=== PATIENT | male | born 1970 ===

== ENCOUNTER 2019-08-02 18:15 | Inpatient (IN) | payer OTHER ==
[2019-08-03 01:40] VITALS: BMI 28.8
[2019-08-03] MEDS ORDERED: Ondansetron ODT 4 MG TAB PO PRN (01:46)
[2019-08-03 02:21] LABS: Hemoglobin 14.7 g/dL (14.0-18.0); Mean Corpuscular HGB CONC 36.2 g/dL (32.0-36.0); Mean Corpuscular Hemoglobin 33.1 pg (27.0-31.0); Mean Corpuscular Volume 91.5 fL (78.0-98.0); Mean Platelet Volume 5.7 fL (7.4-10.4); Platelet Count 411 thou/uL (130-400); RBC Distribution Width 11.1 % (11.5-14.5); Red Blood Cell (RBC) Count 4.44 mill/uL (4.70-6.10); White Blood Cell (WBC) Count 13.5 thou/uL (4.8-10.8)
--- NOTE | 2019-08-03 02:35 | PDOC.EVN ---
Event Note - Event Note Event Note: [id number]
[2019-08-03 02:39] LABS: Lymphocytes 8 % (21-51); MDiff Complete? YES; Monocytes 6 % (0-10); Neutrophil 86 % (42-75); Platelet Morphology Comment Appears Increased; RBC Morphology Normal
[2019-08-03] MEDS: Cefepime 2 GM in Sodium Chloride 0.9% 100 ML IVPB SCH ×2 (02:56→14:28)
--- NOTE | 2019-08-03 03:05 | HP ---
CHIEF COMPLAINT: Cough, fever, and chest pain. HISTORY OF PRESENT ILLNESS: Mr. Pappas is a 49-year-old male with past medical history of bronchial asthma, has been having right-sided chest pain, cough and fever for the last 2 weeks. The patient currently is an inmate. The patient was treated with azithromycin and Bactrim. The symptoms persist. Repeat imaging studies and CTA of the chest were done, which showed a large loculated pleural effusion with complete collapse of the right lower lobe. Requested to transfer the patient to our hospital for further management. PAST MEDICAL HISTORY: 1. Bronchial asthma. 2. GERD. 3. Hepatitis C. 4. Varicella. PAST SURGICAL HISTORY: None. ALLERGIES: ALLERGIC TO PENICILLIN AND TYLENOL. FAMILY HISTORY: Reviewed and noncontributory. SOCIAL HISTORY: The patient currently is an inmate, former smoker. Denies alcohol drinking. REVIEW OF SYSTEMS: Review of 14 systems negative except what is mentioned in history of present illness. PHYSICAL EXAMINATION: GENERAL: The patient is awake, alert, does not appear to be in acute distress. VITAL SIGNS: Blood pressure 123/83, pulse is 97, temperature 99.3, respiratory rate is 24. HEAD AND NECK: Normocephalic, atraumatic. NECK: Supple. No JVD. CHEST: There is decreased air entry in right lung with dullness to percussion in right chest posteriorly. HEART: S1, S2. Regular. ABDOMEN: Soft, nontender. Bowel sounds present. NEUROLOGIC: Awake, alert, and oriented x3. PSYCHIATRIC: Normal mood. EXTREMITIES: No clubbing. No cyanosis. LABORATORY DATA: Latest labs from the outside facility, WBC count 16.8, hemoglobin 14.5, platelet count 72. Sodium is 140, potassium 4.5, BUN is 13, creatinine 1.1, glucose 110. CTA of the chest, as mentioned above in history of present illness. ASSESSMENT: 1. Pneumonia with parapneumonic effusion. 2. Parapneumonic effusion, loculated. 3. Chest pain secondary to above. 4. Leukocytosis. 5. Asthma. PLAN: 1. Admit. 2. Septic workup including blood cultures. 3. IV antibiotics. 4. Consult Pulmonary in a.m. for evaluation and further recommendations. 5. Reconcile home medications. 6. Deep venous thrombosis prophylaxis as appropriate. 7. Expected length of stay 2 midnights or more. Job ID: [id number]
--- NOTE | 2019-08-03 08:17 | RAD ---
Exam: Chest 2 views: HISTORY: Pleural effusion FINDINGS: There is abnormal pleural opacity changes within the right lower chest and right mid chest with somew hat nodular change suggesting a possibility of some associated loculation. Heart size is normal. The left lung is clear. No prior imaging available. IMPRESSION: Moderately large possibly loculated right pleural effusion. There may well be some underlying pulmona ry parenchymal changes. Heart size is normal. Left lung is clear. Continued short-term follow-up. Consider follow-up chest CT.
[2019-08-03] MEDS ORDERED: Vancomycin HCl 1.25 GM in Sodium Chloride 0.9% 250 ML 250 ML IVPB SCH (09:00)
[2019-08-03] MEDS: Famotidine 20 MG TAB PO SCH ×2 (09:16→20:26)
[2019-08-03 11:32] LABS: Fluid, pH - Pleural Fld Less than 7.00 (7.60 - 7.66)
--- NOTE | 2019-08-03 12:06 | CON ---
DATE OF CONSULTATION: HISTORY OF PRESENT ILLNESS: Kofi Pappas is a 49-year-old gentleman from the custodial system [place], [place], who states for the last 2 weeks he is having right-sided chest pain and shortness of breath, fever, chills, and yellow sputum production. He had an x-ray taken, which showed a right pleural effusion. CAT scan showed a loculated pleural effusion. He is transferred here for ongoing care. We have been consulted. I reviewed his chest x-ray from yesterday. It clearly shows a large right pleural effusion. He is in custodial system over several years. He has longstanding history of tobacco abuse, substance abuse, and alcohol abuse. PAST MEDICAL HISTORY: Asthma, reflux, hemorrhoids, hepatitis C, arthritis, and zoster. He apparently was given Bactrim and azithromycin for 8 days in the custodial system without much relief. ALLERGIES: HE HAS ALLERGIES TO PENICILLIN. MEDICATIONS: His medicine from the custodial system includes; 1. Albuterol. 2. Flovent. 3. Lasix. REVIEW OF SYSTEMS: Otherwise, negative. PHYSICAL EXAMINATION: VITAL SIGNS: On examination, his temperature is 98, pulse 87, respiratory rate 18, saturations are 98% on room air, and blood pressure 117/76. CHEST: Decreased breath sounds, right low two-thirds; left, unremarkable. Minimal wheezing. CARDIAC: Normal S1 and S2. No gallops. ABDOMEN: No masses. LABORATORY DATA: White count is 13,000, H and H are 14 and40, and platelet count is normal. His lab from the custodial system showed his glucose was 110, his BUN and creatinine were normal. ASSESSMENT: Right pleural effusion, parapneumonic, asthma, hepatitis C, hemorrhoids. PLAN: A thoracentesis will be performed. He will be sent for culture. Cardiovascular Surgery will be consulted for decortication. Primary/Critical Care will follow. This is a consultation note, 70 minutes, 50% direct patient care exclusive of the thoracentesis. Job ID: [id number]
[2019-08-03 12:29] LABS: Fluid, Triglycerides 21 mg/dL (Not Available); Pleural Fluid, Amylase Less than 30 U/L (Not Available); Pleural Fluid, Glucose Less than 20 mg/dL; Pleural Fluid, LDH 1363 U/L (Not Available); Pleural Fluid, Protein 4.9 g/dL
[2019-08-03 12:42] LABS: RBC Count-Automated (BF) 2220 /cumm; WBC/Nucleated-Auto (BF) 2975 uL
--- NOTE | 2019-08-03 12:58 | OP ---
DATE OF PROCEDURE: 08/03/2019 PROCEDURE PERFORMED: Thoracentesis. INDICATION: Loculated pleural effusion. DESCRIPTION OF PROCEDURE: After informed consent, the right posterior thorax was cleaned with chlorhexidine. 1% lidocaine was infiltrated into the right 9th intercostal space in the midscapular area. Pleural cavity was entered in, which was felt to be somewhat thick pleura and 20 mL of somewhat greenish turbid fluid was removed, pH is 6.8, suggesting it is parapneumonic and loculated. An 8-Syriac catheter was inserted with some difficulty where we were able to get barely 100 mL. Pleural effusion was sent for pleural studies including cytology and culture. The patient tolerated the procedure well. They are going to consult Cardiovascular Surgery for decortication. Job ID: [id number]
[2019-08-03 13:06] LABS: BF Color Yellow; Body Fluid Source Pleural Fluid; Clarity Hazy (Clear); Tube # EDTA
[2019-08-03 13:12] LABS: BF Segmented Neutrophils 54 %; Cell Count Non Hematic 21 %; Eosinophils 2 %; Lymphocytes 23 %
[2019-08-03] MEDS: traMADol HCl 50 MG TAB PO PRN (14:27)
--- NOTE | 2019-08-03 14:30 | CON ---
DATE OF CONSULTATION: 08/03/2019 HISTORY OF PRESENT ILLNESS: Mr. Pappas is a 49-year-old gentleman, who has had fever or chills, overall feeling of malaise over the last week or so. He had a chest x-ray performed, which shows a right-sided pleural effusion. This was tapped by Dr. Correa with turbid low pH fluid. I have been asked to see him for decortication. He is currently resting comfortably without other complaints. PAST MEDICAL HISTORY: Hepatitis C. PAST SURGICAL HISTORY: None. CURRENT MEDICATIONS: None. ALLERGIES: PENICILLIN AND TYLENOL. REVIEW OF SYSTEMS: Ten-point review of systems is performed, is negative except as above. PHYSICAL EXAMINATION: GENERAL: This is a well-developed, well-nourished man, resting comfortably. VITAL SIGNS: Temperature is 98, pulse is 80 and regular, and blood pressure is 133/79. NECK: Supple. There are no carotid bruits. CHEST: Has diminished breath sounds to both bases. HEART: Rhythm is regular. ABDOMEN: Soft and nontender. LABORATORY DATA: Of note, his white blood cell count is 13.5, hemoglobin is 14.7. ASSESSMENT AND PLAN: This is a pleasant 49-year-old prisoner, who has a right empyema. I have discussed right thoracoscopy and decortication with him as he is agreeable to proceed tomorrow. Job ID: [id number]
[2019-08-03] MEDS: Vancomycin 1.5 GRAM/300 ML BAG 1.5 GM in Premix Bag 1 BAG IVPB SCH (16:35)
[2019-08-04] MEDS: Cefepime 2 GM in Sodium Chloride 0.9% 100 ML IVPB SCH ×2 (03:09→15:05)
[2019-08-04] MEDS: Vancomycin 1.5 GRAM/300 ML BAG 1.5 GM in Premix Bag 1 BAG IVPB SCH ×2 (04:15→16:55)
[2019-08-04] MEDS ORDERED: Fentanyl 250 MCG/5 ML VIAL ONE (07:43)
[2019-08-04] MEDS: Famotidine 20 MG TAB PO SCH ×2 (07:55→21:26)
[2019-08-04] MEDS ORDERED: Midazolam HCl 2 mg/2 ml Vial ONE (08:03)
[2019-08-04] MEDS ORDERED: Bupivacaine PF 0.5% 30 ML VIAL ONE (08:49)
[2019-08-04] MEDS ORDERED: Fentanyl 100 MCG/2 ML VIAL ONE (10:09)
[2019-08-04] MEDS ORDERED: Promethazine HCl 25 MG/ML VIAL IM PRN ×2 (10:10→10:18)
[2019-08-04] MEDS ORDERED: Ondansetron HCl/PF 4 MG/2 ML Vial IVP PRN (10:10)
[2019-08-04] MEDS ORDERED: Promethazine HCl 25 MG/ML VIAL SLOW IVP PRN (10:10)
[2019-08-04] MEDS ORDERED: Ondansetron PF 4 MG/2 ML Vial IVP PRN (10:18)
[2019-08-04] MEDS ORDERED: Fentanyl 100 MCG/2 ML VIAL SLOW IVP PRN ×2 (10:18)
--- NOTE | 2019-08-04 10:37 | RAD ---
Exam: Chest one view: HISTORY: Pleural effusion COMPARISON: 08/03/2019 FINDINGS: 2 right chest tubes in place minimal linear parenchymal changes in the right mid and lower lung zone possibly some mild partial residual atelectasis. There is been marked reduction in the right pleural fluid. The left chest is stable. IMPRESSION: 2 right chest tubes placed with marked reduction in previously noted right pleural effusion with some minimal persistent parenchymal changes.
[2019-08-04] MEDS ORDERED: Vecuronium 10 MG VIAL ONE (10:39)
[2019-08-04] MEDS ORDERED: Lidocaine 1% PF 5 ML VIAL ONE (10:39)
[2019-08-04] MEDS ORDERED: Ondansetron PF 4 MG/2 ML Vial ONE (10:39)
[2019-08-04] MEDS ORDERED: Glycopyrrolate 0.2 MG/ML 5 ML SYRINGE ONE (10:39)
[2019-08-04] MEDS ORDERED: PROPOFOL 200 MG/20 ML VIAL ONE (10:39)
--- NOTE | 2019-08-04 12:20 | PRG ---
DATE OF SERVICE: 08/04/2019 SUBJECTIVE: Kofi Pappas is status post decortication. X-ray looks much improved. No acute infiltrates are seen. OBJECTIVE: VITAL SIGNS: Temperature 98, pulse 95, respiratory rate 24, 2 L, blood pressure . No difficulty breathing. CHEST: No wheezing or crackles. CARDIAC: Normal S1, S2. No gallops. ABDOMEN: No masses. ASSESSMENT: Status post right pleural effusion loculated, decortication, hepatitis C, asthma. PLAN: Pulmonary franco, he is much improved at this stage. Continue antibiotics. We will probably deescalate tomorrow. PT, supportive care. We will follow. Job ID: [id number]
[2019-08-04] MEDS: traMADol HCl 50 MG TAB PO PRN ×3 (13:04→21:25)
--- NOTE | 2019-08-04 13:37 | PDOC.HOSPP ---
- Subjective Encounter Date: 08/04/19 Encounter Time: 13:05 Subjective: 49 y/o male, penitentiary inmate with asthma,GERD and hep C infection admitted with worsening R chest pain associated with cough and fever despite antibiotic therapy with azithromycin and bactrim for pneumonia. Ct showed loculated right effusion s/p thoracenetesis with fluid analysis consistent with empyema. Patient had decortication with chest tube placement earlier today. complaining of right chest pain. - Objective Vital Signs & Weight: Vital Signs (12 hours) Temp Pulse Resp BP Pulse Ox 08/04/19 11:30 98.2 F 95 24 H 124/82 95 08/04/19 07:10 92 L 08/04/19 07:05 98.7 F 85 16 118/78 92 L 08/04/19 04:27 98.5 F 84 12 123/81 91 L Weight Admit Weight 209 lb 3.52 oz Weight 209 lb 3.52 oz I&O: 08/03/19 08/04/19 08/05/19 06:59 06:59 06:59 Intake Total 1380 Output Total 800 Balance 580 Result Diagrams: 08/03/19 02:10 Hospitalist ROS - Medication Medications: Active Medications Generic Name Dose Route Start Last Admin Trade Name Freq PRN Reason Stop Dose Admin Famotidine 20 mg 08/03/19 09:00 08/04/19 07:55 Pepcid PO Not Given BID MIKI Cefepime HCl 2 gm/ Sodium 100 mls @ 200 mls/hr 08/03/19 03:00 08/04/19 03:09 Chloride IVPB 100 mls 0300,1500 MIKI Administration Vancomycin HCl 1.5 gm/ Device 300 mls @ 200 mls/hr 08/03/19 17:00 08/04/19 04 :15 IVPB 300 mls 0500,1700 MIKI Administration Ondansetron HCl 4 mg 08/03/19 01:46 08/03/19 20:27 Zofran Odt PO 4 mg Q6H PRN Administration Nausea/Vomiting Tramadol HCl 100 mg 08/03/19 14:13 08/04/19 13:04 Ultram PO 100 mg Q4H PRN Administration Pain - Exam General Appearance: awake alert Eye: anicteric sclera ENT: normocephalic atraumatic Neck: supple, symmetric Heart: RRR Respiratory - other findings: decreased air movement right hemithorax. Chest tube noted Gastrointestinal: soft, non-tender, non-distended, normal bowel sounds Extremities: no cyanosis, no edema Neurological: cranial nerve grossly intact, no focal deficits Psychiatric: A&O x 3 Hosp A/P (1) Pneumonia involving right lung Code(s): J18.9 - PNEUMONIA, UNSPECIFIED ORGANISM Status: Acute (2) Empyema of right pleural space Code(s): J86.9 - PYOTHORAX WITHOUT FISTULA Status: Acute (3) Sepsis Code(s): A41.9 - SEPSIS, UNSPECIFIED ORGANISM Status: Acute (4) GERD (gastroesophageal reflux disease) Code(s): K21.9 - GASTRO-ESOPHAGEAL REFLUX DISEASE WITHOUT ESOPHAGITIS Status: Acute (5) Bronchial asthma Code(s): J45.909 - UNSPECIFIED ASTHMA, UNCOMPLICATED Status: Acute (6) Pleuritic chest pain Code(s): R07.81 - PLEURODYNIA Status: Acute (7) Hepatitis C Code(s): B19.20 - UNSPECIFIED VIRAL HEPATITIS C WITHOUT HEPATIC COMA Status: Acute - Plan Continue antibiotics. Analgesic as needed Follow CBC and CMP. Chest tube management as per CTS and pulmonology Await cultures
[2019-08-04 13:51] LABS: ALT (SGPT) 72 U/L (8-55); AST (SGOT) 63 U/L (5-34); Albumin 3.3 g/dL (3.5-5.0); Alkaline Phosphatase 79 U/L (40-110); Anion Gap 15 mmol/L (10-20); BUN (Urea Nitrogen) 12 mg/dL (8.9-20.6); Bilirubin, Total 0.6 mg/dL (0.2-1.2); Calc. Creatinine Clearance 176 mL/min (70-130); Carbon Dioxide 22 mmol/L (22-29); Chloride 102 mmol/L (98-107); Estimated GFR-MDRD Greater than 90; Globulin 3.9 g/dL (2.4-3.5); Glucose 104 mg/dL (70-105); Potassium 3.8 mmol/L (3.5-5.1); Protein, Total 7.2 g/dL (6.0-8.3); Sodium 135 mmol/L (136-145)
[2019-08-04 16:29] LABS: Vancomycin, Trough 5.2 ug/mL
[2019-08-04] MEDS ORDERED: Vancomycin 1.5 GRAM/300 ML BAG 1.5 GM in Premix Bag 1 BAG IVPB SCH (17:00)
[2019-08-04] MEDS: Ibuprofen 200 MG TAB PO PRN (21:52)
[2019-08-05] MEDS: Vancomycin 1.5 GRAM/300 ML BAG 1.5 GM in Premix Bag 1 BAG IVPB SCH ×2 (01:18→10:29)
[2019-08-05] MEDS: Cefepime 2 GM in Sodium Chloride 0.9% 100 ML IVPB SCH ×3 (03:42→21:35)
[2019-08-05] MEDS: traMADol HCl 50 MG TAB PO PRN ×3 (03:54→21:37)
[2019-08-05 06:03] LABS: #Basophils 0.1 thou/uL (0.0-0.2); #Eosinphils 0.2 thou/uL (0.0-0.7); #Lymphocytes 1.2 thou/uL (1.20-3.40); #Monocytes 1.7 thou/uL (0.11-0.59); #Neutrophils 10.5 thou/uL (1.40-6.50); %Basophils 0.6 % (0.0-1.0); %Eosinophils 1.6 % (0.0-10.0); %Monocytes 12.2 % (0.0-10.0); %Neutrophils 76.6 % (42.0-75.0); Hemoglobin 14.6 g/dL (14.0-18.0); Mean Corpuscular HGB CONC 32.3 g/dL (32.0-36.0); Mean Corpuscular Hemoglobin 29.9 pg (27.0-31.0); Mean Corpuscular Volume 92.3 fL (78.0-98.0); Mean Platelet Volume 5.7 fL (7.4-10.4); Platelet Count 380 thou/uL (130-400); RBC Distribution Width 11.2 % (11.5-14.5); Red Blood Cell (RBC) Count 4.89 mill/uL (4.70-6.10); White Blood Cell (WBC) Count 13.7 thou/uL (4.8-10.8)
[2019-08-05 06:25] LABS: Anion Gap 12 mmol/L (10-20); BUN (Urea Nitrogen) 12 mg/dL (8.9-20.6); Calc. Creatinine Clearance 173 mL/min (70-130); Calcium 8.4 mg/dL (7.8-10.44); Carbon Dioxide 20 mmol/L (22-29); Chloride 101 mmol/L (98-107); Estimated GFR-MDRD Greater than 90; Glucose 107 mg/dL (70-105); Potassium 4.1 mmol/L (3.5-5.1); Sodium 129 mmol/L (136-145)
[2019-08-05] MEDS: Famotidine 20 MG TAB PO SCH ×2 (10:15→20:38)
[2019-08-05] MEDS: Ibuprofen 200 MG TAB PO PRN ×2 (10:26→18:00)
--- NOTE | 2019-08-05 10:32 | RAD ---
CHEST ONE VIEW: HISTORY: Status post thoracotomy. FINDINGS: Right chest tubes in place. There is some pleural fluid/pleural thickening. Increased opacity changes in the right mid and lower lung zone, probably related to some atelectasis. Less inspiration with so me left lower lobe partial atelectasis. IMPRESSION: Overall less inspiratory effort with some minimal increased pleural density on the right and abnormal increased opacity changes in the right lung and left lower lobe, probably representing atelectasis. Continued short-term followup. POS: [facility]
[2019-08-05] MEDS: Doxycycline 100 MG CAP PO SCH (20:38)
--- NOTE | 2019-08-05 22:31 | PDOC.HOSPP ---
- Subjective Encounter Date: 08/05/19 Encounter Time: 11:00 Subjective: Patient seen and examined for Empyema. Pain controlled. No fever. No new complaints. No overnight events - Objective Vital Signs & Weight: Vital Signs (12 hours) Temp Pulse Resp BP Pulse Ox 08/05/19 19:10 97.9 F 92 16 112/78 92 L 08/05/19 15:00 97.9 F 87 16 116/80 92 L 08/05/19 12:00 97.9 F 87 16 116/80 92 L 08/05/19 11:06 97.8 F 90 16 114/78 92 L Weight Admit Weight 209 lb 3.52 oz Weight 209 lb 3.52 oz I&O: 08/04/19 08/05/19 08/06/19 06:59 06:59 06:59 Intake Total 6626 714 3146 Output Total 618 506 3938 Balance 580 40 115 Result Diagrams: 08/06/19 05:10 08/06/19 05:10 Additional Labs: Microbiology 08/03/19 11:35 Pleural fluid Direct Acid Fast Bacilli Smear - Final 08/03/19 11:35 Pleural fluid Body Fluid Culture - Preliminary 08/03/19 11:35 Pleural fluid Acid Fast Bacilli Culture - Preliminary Specimen has been received and culture in progress. No Growth to date. 08/03/19 02:10 Venous blood - Right Arm Blood Culture - Preliminary NO GROWTH AT 48 HOURS 08/03/19 02:10 Venous blood - Left Hand Blood Culture - Preliminary NO GROWTH AT 48 HOURS Radiology Reviewed by me: Yes (CXR - reviewed) Hospitalist ROS - Review of Systems Cardiovascular: denies: chest pain, palpitations, orthopnea, paroxysmal noc. dyspnea, edema, light headedness, other Gastrointestinal: denies: nausea, vomiting, abdominal pain, diarrhea, constipation, melena, hematochezia, other - Medication Medications: Active Medications Generic Name Dose Route Start Last Admin Trade Name Freq PRN Reason Stop Dose Admin Doxycycline Hyclate 100 mg 08/05/19 21:00 08/05/19 20:38 Vibramycin PO 08/15/19 21:01 100 mg BID MIKI Administration Famotidine 20 mg 08/03/19 09:00 08/05/19 20:38 Pepcid PO 20 mg BID MIKI Administration Cefepime HCl 2 gm/ Sodium 100 mls @ 200 mls/hr 08/05/19 21:00 08/05/19 21:35 Chloride IVPB 100 mls 0900,2100 MIKI Administration Ibuprofen 400 mg 08/04/19 21:45 08/05/19 18:00 Motrin PO 400 mg Q6H PRN Administration Fever/Mild Pain Ondansetron HCl 4 mg 08/03/19 01:46 08/03/19 20:27 Zofran Odt PO 4 mg Q6H PRN Administration Nausea/Vomiting Tramadol HCl 100 mg 08/03/19 14:13 08/05/19 21:37 Ultram PO 100 mg Q4H PRN Administration Pain - Exam General Appearance: NAD Heart: RRR, no gallops Respiratory: rales, rhonchi Gastrointestinal: soft, normal bowel sounds Extremities: no edema Hosp A/P - Plan DVT proph w/SCDs Sepsis due to CA Pneumonia with Parapneumonic effusion/Empyema s/p decortication 08/04 (POA) Hyponatremia Chronic Hep C GERD Mild int Asthma PLAN: Cont IV Cefepime Cont PO Doxy Pain controlled AM labs Cont other meds as above
[2019-08-06] MEDS: traMADol HCl 50 MG TAB PO PRN ×3 (03:22→17:54)
[2019-08-06 05:17] LABS: #Basophils 0.1 thou/uL (0.0-0.2); #Eosinphils 0.6 thou/uL (0.0-0.7); #Lymphocytes 1.1 thou/uL (1.20-3.40); #Monocytes 1.1 thou/uL (0.11-0.59); #Neutrophils 8.4 thou/uL (1.40-6.50); %Basophils 0.5 % (0.0-1.0); %Eosinophils 5.4 % (0.0-10.0); %Lymphocytes 9.9 % (21.0-51.0); %Monocytes 9.6 % (0.0-10.0); %Neutrophils 74.6 % (42.0-75.0); Hemoglobin 13.3 g/dL (14.0-18.0); Mean Corpuscular HGB CONC 33.5 g/dL (32.0-36.0); Mean Corpuscular Hemoglobin 30.8 pg (27.0-31.0); Mean Corpuscular Volume 91.9 fL (78.0-98.0); Mean Platelet Volume 5.4 fL (7.4-10.4); Platelet Count 360 thou/uL (130-400); Red Blood Cell (RBC) Count 4.32 mill/uL (4.70-6.10); White Blood Cell (WBC) Count 11.3 thou/uL (4.8-10.8)
[2019-08-06 05:40] LABS: ALT (SGPT) 46 U/L (8-55); AST (SGOT) 37 U/L (5-34); Albumin 2.8 g/dL (3.5-5.0); Alkaline Phosphatase 75 U/L (40-110); Anion Gap 10 mmol/L (10-20); BUN (Urea Nitrogen) 12 mg/dL (8.9-20.6); Bilirubin, Total 0.4 mg/dL (0.2-1.2); Calc. Creatinine Clearance 181 mL/min (70-130); Calcium 8.4 mg/dL (7.8-10.44); Carbon Dioxide 27 mmol/L (22-29); Chloride 98 mmol/L (98-107); Estimated GFR-MDRD Greater than 90; Globulin 3.5 g/dL (2.4-3.5); Glucose 112 mg/dL (70-105); Magnesium 1.8 mg/dL (1.6-2.6); Protein, Total 6.3 g/dL (6.0-8.3); Sodium 131 mmol/L (136-145)
[2019-08-06] MEDS: Ibuprofen 200 MG TAB PO PRN ×3 (07:38→20:38)
--- NOTE | 2019-08-06 08:08 | RAD ---
Exam: Chest one view HISTORY:Status post thoracotomy Comparison: 08/05/2019 FINDINGS: Cardiac silhouette:Stable cardiomegaly Aorta: Unremarkable Pulmonary vessels: Normal Costophrenic angles: Small right-sided pleural effusion Lines and tubes: Stable 2 right-sided chest tubes. LUNGS: Stable bibasilar opacities. Pneumothorax: None Osseous abnormalities: None IMPRESSION: No significant old change.
[2019-08-06] MEDS: Doxycycline 100 MG CAP PO SCH ×2 (08:39→20:27)
[2019-08-06] MEDS: Famotidine 20 MG TAB PO SCH ×2 (08:39→20:27)
[2019-08-06] MEDS: Cefepime 2 GM in Sodium Chloride 0.9% 100 ML IVPB SCH ×2 (08:39→20:28)
[2019-08-06] MEDS: Saccharomyces boulardii 250 MG CAP PO SCH (08:39)
--- NOTE | 2019-08-06 09:39 | PRG ---
DATE OF SERVICE: 08/06/2019 SUBJECTIVE: Status post decortication, he is doing well. Less pain, less shortness of breath. X-ray still shows some right-sided infiltrates, but no fever or chills. Chest tube in place. OBJECTIVE: VITAL SIGNS: Maximum temperature is 97. CHEST: Decreased breath sounds. No wheezing. CARDIAC: Normal S1 and S2. No gallops. ABDOMEN: No masses. ASSESSMENT: Empyema, decortication, all cultures negative. PLAN: Continue antibiotics. Continue supportive care, PT. We will follow. Job ID: [id number]
[2019-08-06] MEDS ORDERED: Polyethylene Glycol 3350 17 GM Packet PO PRN (15:36)
--- NOTE | 2019-08-06 19:52 | PDOC.HOSPP ---
- Subjective Encounter Date: 08/06/19 Encounter Time: 11:30 Subjective: Patient seen and examined for Empyema. No new CP/SOB. Mild dry cough. No new complaints. No overnight events - Objective Vital Signs & Weight: Vital Signs (12 hours) Temp Pulse Resp BP Pulse Ox 08/06/19 19:36 97.7 F 80 16 113/75 93 L 08/06/19 15:24 98.5 F 86 16 116/75 90 L 08/06/19 11:13 98.0 F 94 18 122/80 92 L 08/06/19 08:39 93 L Weight Admit Weight 209 lb 3.52 oz Weight 209 lb 3.52 oz I&O: 08/05/19 08/06/19 08/07/19 06:59 06:59 06:59 Intake Total 880 3780 2700 Output Total 840 3745 3335 Balance 40 35 -635 Result Diagrams: 08/06/19 05:10 08/06/19 05:10 Additional Labs: Microbiology 08/03/19 11:35 Pleural fluid Direct Acid Fast Bacilli Smear - Final 08/03/19 11:35 Pleural fluid Body Fluid Culture - Preliminary Gram Negative Hesham 08/03/19 11:35 Pleural fluid Acid Fast Bacilli Culture - Preliminary Specimen has been received and culture in progress. No Growth to date. 08/03/19 02:10 Venous blood - Right Arm Blood Culture - Preliminary NO GROWTH AT 48 HOURS 08/03/19 02:10 Venous blood - Left Hand Blood Culture - Preliminary NO GROWTH AT 48 HOURS Radiology Reviewed by me: Yes (CXR - no new changes) Hospitalist ROS - Review of Systems Cardiovascular: denies: chest pain, palpitations, orthopnea, paroxysmal noc. dyspnea, edema, light headedness, other Gastrointestinal: reports: constipation. denies: nausea, vomiting, abdominal pain, diarrhea, melena, hematochezia, other - Medication Medications: Active Medications Generic Name Dose Route Start Last Admin Trade Name Freq PRN Reason Stop Dose Admin Doxycycline Hyclate 100 mg 08/05/19 21:00 08/06/19 08:39 Vibramycin PO 08/15/19 21:01 100 mg BID MIKI Administration Famotidine 20 mg 08/03/19 09:00 08/06/19 08:39 Pepcid PO 20 mg BID MIKI Administration Cefepime HCl 2 gm/ Sodium 100 mls @ 200 mls/hr 08/05/19 21:00 08/06/19 08:39 Chloride IVPB 100 mls 0900,2100 MIKI Administration Ibuprofen 400 mg 08/06/19 15:15 08/06/19 15:59 Motrin PO 400 mg Q4H PRN Administration Fever/Mild Pain (1-3) Ondansetron HCl 4 mg 08/03/19 01:46 08/03/19 20:27 Zofran Odt PO 4 mg Q6H PRN Administration Nausea/Vomiting Saccharomyces Boulardii 250 mg 08/06/19 09:00 08/06/19 08:39 Florastor PO 250 mg DAILY MIKI Administration Tramadol HCl 100 mg 08/06/19 15:26 08/06/19 17:54 Ultram PO 100 mg Q6H PRN Administration Pain - Exam General Appearance: NAD Heart: RRR, no gallops Respiratory: rales, rhonchi Gastrointestinal: soft, non-tender, normal bowel sounds Extremities: no edema Hosp A/P - Plan DVT proph w/SCDs Sepsis due to CA Pneumonia with Parapneumonic effusion/Empyema s/p decortication 08/04 (POA) Hyponatremia Chronic Hep C GERD Mild int Asthma PLAN: Cont IV Cefepime/PO Doxycycline Cont other meds as above Pain control with PRN meds Treat constipation
[2019-08-06] MEDS: Senokot S 8.6-50 MG TAB PO SCH (20:28)
[2019-08-07] MEDS: traMADol HCl 50 MG TAB PO PRN ×2 (00:01→13:18)
[2019-08-07] MEDS: Ibuprofen 200 MG TAB PO PRN ×2 (06:04→14:45)
[2019-08-07] MEDS: Cefepime 2 GM in Sodium Chloride 0.9% 100 ML IVPB SCH (08:20)
[2019-08-07] MEDS: Senokot S 8.6-50 MG TAB PO SCH (08:21)
[2019-08-07] MEDS: Famotidine 20 MG TAB PO SCH ×2 (08:21→21:37)
[2019-08-07] MEDS: Doxycycline 100 MG CAP PO SCH ×2 (08:21→21:37)
[2019-08-07] MEDS: Saccharomyces boulardii 250 MG CAP PO SCH (08:21)
--- NOTE | 2019-08-07 09:05 | PRG ---
DATE OF SERVICE: 08/07/2019 SUBJECTIVE: This morning, he is better. Chest tube was removed. OBJECTIVE: VITAL SIGNS: Sats are 95% on room air, temperature 98, pulse 89, respiratory rate 16, and blood pressure 110/72. CHEST: Decreased breath sounds without any wheezing. CARDIAC: Normal S1 and S2. No gallops. ABDOMEN: No masses. ASSESSMENT AND PLAN: Right-sided empyema, gram-negative, awaiting final path, Levaquin and doxycycline on board. Baseline chest x-ray. May be discharged back in the next 24 to 48 hours. Job ID: [id number]
--- NOTE | 2019-08-07 11:59 | RAD ---
EXAM: Two views chest PROVIDED CLINICAL HISTORY: Pleural effusion. COMPARISON: 08/06/2019 FINDINGS: Cardiac silhouette and pulmonary vasculature are within normal limits. The 2 right-sided thoracostom y tubes have been removed. Small amount of pleural-based density is again seen along the right lateral chest and in the region of the minor fissure similar to prior study given differences in dept h of inspiration. Bibasilar linear densities are present with mild parenchymal changes at the right lung base. These findings could be related to atelectasis. No other interval change IMPRESSION: 1. Interval removal of the right-sided thoracostomy tubes with persistent small right pleural effusio n along the right lateral chest and in the expected location of the minor fissure. No pneumothorax is seen. 2. Stable bibasilar linear and patchy densities greater at the right lung base which could be related to persistent atelectasis. However, continued follow-up is recommended to ensure resolution.
--- NOTE | 2019-08-07 15:22 | RAD ---
XR Chest 1 View Portable History: Chest pain Comparison: Radiograph same day Findings: Similar appearance of the bilateral layering pleural effusion with loculation along the rig ht minor fissure. Parenchymal opacities both lower lobes are similar. No pneumothorax. Impression: Similar examination of the chest.
[2019-08-07] MEDS ORDERED: Melatonin 3 MG TAB PO PRN (19:31)
--- NOTE | 2019-08-07 23:26 | PDOC.HOSPP ---
- Subjective Encounter Date: 08/07/19 Encounter Time: 10:30 Subjective: Patient seen and examined for Empyema. No new CP. Mild dry cough. No new complaints. No overnight events - Objective Vital Signs & Weight: Vital Signs (12 hours) Temp Pulse Resp BP Pulse Ox 08/07/19 22:55 98.7 F 83 16 118/76 93 L 08/07/19 20:25 93 L 08/07/19 19:14 97.7 F 80 16 118/81 93 L 08/07/19 14:49 98.7 F 86 18 127/85 92 L Weight Admit Weight 209 lb 3.52 oz Weight 209 lb 3.52 oz I&O: 08/06/19 08/07/19 08/08/19 06:59 06:59 06:59 Intake Total 3780 5260 2900 Output Total 3745 5850 1000 Balance 35 -590 1900 Result Diagrams: 08/06/19 05:10 08/06/19 05:10 Radiology Reviewed by me: Yes (CXR - stable) Hospitalist ROS - Review of Systems Respiratory: denies: cough, dry, shortness of breath, hemoptysis, SOB with excertion, pleuritic pain, sputum, wheezing, other Cardiovascular: denies: chest pain, palpitations, orthopnea, paroxysmal noc. dyspnea, edema, light headedness, other - Medication Medications: Active Medications Generic Name Dose Route Start Last Admin Trade Name Freq PRN Reason Stop Dose Admin Doxycycline Hyclate 100 mg 08/05/19 21:00 08/07/19 21:37 Vibramycin PO 08/15/19 21:01 100 mg BID MIKI Administration Famotidine 20 mg 08/03/19 09:00 08/07/19 21:37 Pepcid PO 20 mg BID MIKI Administration Ibuprofen 400 mg 08/06/19 15:15 08/07/19 14:45 Motrin PO 400 mg Q4H PRN Administration Fever/Mild Pain (1-3) Melatonin 3 mg 08/07/19 19:31 08/07/19 21:37 Melatonin PO 3 mg HSPRN PRN Administration Insomnia Ondansetron HCl 4 mg 08/03/19 01:46 08/03/19 20:27 Zofran Odt PO 4 mg Q6H PRN Administration Nausea/Vomiting Polyethylene Glycol 17 gm 08/06/19 15:36 08/07/19 06:04 Miralax PO 17 gm DAILYPRN PRN Administration Constipation Saccharomyces Boulardii 250 mg 08/06/19 09:00 08/07/19 08:21 Florastor PO 250 mg DAILY MIKI Administration Tramadol HCl 100 mg 08/06/19 15:26 08/07/19 13:18 Ultram PO 100 mg Q6H PRN Administration Pain - Exam General Appearance: NAD Heart: RRR, no gallops Respiratory: CTAB, no rales Gastrointestinal: soft, non-distended Extremities: no edema Hosp A/P - Plan DVT proph w/SCDs Sepsis due to CA Pneumonia with Parapneumonic effusion/Empyema s/p decortication 08/04 (POA) Hyponatremia Chronic Hep C GERD Mild int Asthma Constipation - resolved Insomnia PLAN: Cont Doxycycline/Levaquin Cont Nebs Cont other meds as above Add Melatonin PRN
[2019-08-08] MEDS: Ibuprofen 200 MG TAB PO PRN ×3 (01:10→14:17)
[2019-08-08] MEDS: traMADol HCl 50 MG TAB PO PRN ×3 (01:10→14:17)
[2019-08-08] MEDS: Saccharomyces boulardii 250 MG CAP PO SCH (08:16)
[2019-08-08] MEDS: Doxycycline 100 MG CAP PO SCH (08:16)
[2019-08-08] MEDS: Famotidine 20 MG TAB PO SCH (08:16)
--- NOTE | 2019-08-08 10:00 | PRG ---
DATE OF SERVICE: 08/08/2019 SUBJECTIVE: This morning, he is better, less short of breath, less cough. OBJECTIVE: VITAL SIGNS: Saturations are 98% on room air, temperature 98, pulse 80, respiratory rate 12, blood pressure 110/78. CHEST: No wheezing or crackles. CARDIAC: Normal S1 and S2. No gallops. ABDOMEN: No masses. LABORATORY DATA: His body fluid culture grew fusobacterium, which is an anaerobic infection. IMPRESSION: Right lung empyema, anaerobic infection. PLAN: Pulmonary franco, he is ready to be discharged. [facility] suggesting antibiotics for another week. Job ID: [id number]
[2019-08-08 15:50] VITALS: BP 120/84; TEMP 98
--- NOTE | 2019-08-08 16:09 | PDOC.HOSPP ---
- Subjective Encounter Date: 08/08/19 Encounter Time: 10:45 Subjective: Patient seen and examined for Pneumonia/Empyema. Mild pleuritic CP. No fever. No other complaints. No overnight events - Objective Vital Signs & Weight: Vital Signs (12 hours) Temp Pulse Resp BP Pulse Ox 08/08/19 15:48 98.0 F 73 16 120/84 94 L 08/08/19 12:05 97.7 F 83 14 124/83 94 L 08/08/19 08:15 94 L 08/08/19 08:00 98.6 F 80 12 117/78 94 L Weight Admit Weight 209 lb 3.52 oz Weight 209 lb 3.52 oz I&O: 08/07/19 08/08/19 08/09/19 06:59 06:59 06:59 Intake Total 5260 2900 700 Output Total 5850 1000 Balance -590 1900 700 Result Diagrams: 08/06/19 05:10 08/06/19 05:10 Hospitalist ROS - Review of Systems Cardiovascular: denies: chest pain, palpitations, orthopnea, paroxysmal noc. dyspnea, edema, light headedness, other Gastrointestinal: denies: nausea, vomiting, abdominal pain, diarrhea, constipation, melena, hematochezia, other - Medication Medications: Active Medications Generic Name Dose Route Start Last Admin Trade Name Freq PRN Reason Stop Dose Admin Famotidine 20 mg 08/03/19 09:00 08/08/19 08:16 Pepcid PO 20 mg BID MIKI Administration Ibuprofen 400 mg 08/06/19 15:15 08/08/19 14:17 Motrin PO 400 mg Q4H PRN Administration Fever/Mild Pain (1-3) Levofloxacin 750 mg 08/08/19 06:00 08/08/19 05:48 Levaquin PO 750 mg 0600 MIKI Administration Melatonin 3 mg 08/07/19 19:31 08/07/19 21:37 Melatonin PO 3 mg HSPRN PRN Administration Insomnia Ondansetron HCl 4 mg 08/03/19 01:46 08/03/19 20:27 Zofran Odt PO 4 mg Q6H PRN Administration Nausea/Vomiting Polyethylene Glycol 17 gm 08/06/19 15:36 08/07/19 06:04 Miralax PO 17 gm DAILYPRN PRN Administration Constipation Saccharomyces Boulardii 250 mg 08/06/19 09:00 08/08/19 08:16 Florastor PO 250 mg DAILY MIKI Administration Tramadol HCl 100 mg 08/06/19 15:26 08/08/19 14:17 Ultram PO 100 mg Q6H PRN Administration Pain - Exam General Appearance: NAD Neck: supple, no JVD Heart: RRR, no gallops Respiratory: no rales, no ronchi Gastrointestinal: soft, non-tender, normal bowel sounds Extremities: no edema Hosp A/P - Plan DVT proph w/SCDs Sepsis due to CA Pneumonia with Parapneumonic effusion/Empyema s/p decortication 08/04 Hyponatremia Chronic Hep C GERD Mild int Asthma Constipation - resolved Insomnia PLAN: Cont Levaquin Cont Nebs PRN Cont other meds as above DC if ok with CV/Pulmonary
--- NOTE | 2019-08-08 17:28 | DIS ---
DATE OF ADMISSION: 08/03/2019 DATE OF DISCHARGE: 08/08/2019 DISCHARGE DISPOSITION: The patient is an inmate. The patient was seen and examined on the day of discharge. Denies any new complaints. Please refer to my progress note for details. BRIEF HOSPITAL COURSE: The patient is a 49-year-old male with bronchial asthma, presented to the hospital with cough, fever, along with right-sided pleuritic chest pain of 2 weeks' duration. He was treated with azithromycin and Bactrim. His symptom, however, persisted. He underwent a CTA of the chest that was consistent with large loculated pleural effusion with complete collapse of the right lower lobe. He was monitored on the medical floor. His workup was consistent with pneumonia with parapneumonic effusion. He underwent thoracentesis that was consistent with empyema. His pleural pH was less than 7 with LDH of 1363, pleural protein of 4.9 with pleural glucose less than 20. His blood culture remained negative. He underwent decortication by Dr. Rosenbaum. The chest tube was removed in the last 24 to 48 hours. Symptomatically, the patient has been doing well. Chest x-ray yesterday was negative for acute findings. He has been cleared by Pulmonary and Cardiovascular for discharge. He will complete 1 more week of Levaquin. FINAL DIAGNOSES: 1. Sepsis due to community-acquired pneumonia with parapneumonic effusion/empyema, status post decortication on 08/04. 2. Hyponatremia. His sodium at discharge is 131, on admission was 135. Repeat basic metabolic profile after a week is recommended. 3. Chronic hepatitis C. 4. Gastroesophageal reflux disease. 5. Mild intermittent asthma. 6. Insomnia. 7. Constipation, resolved. 8. Anemia. PLAN: Plan of care was discussed with the patient in detail, he stated understanding. Job ID: [id number]
--- NOTE | 2019-09-04 15:56 | OP ---
DATE OF PROCEDURE: 08/03/2019 PREOPERATIVE DIAGNOSIS: Right empyema. POSTOPERATIVE DIAGNOSIS: Right empyema. PROCEDURE PERFORMED: Right thoracoscopy with total pulmonary decortication. DRAIN: A 24-Lao Joseph drain x2. DESCRIPTION OF PROCEDURE: The patient was brought to the operating room and placed under general anesthesia. He was placed in left lateral decubitus position. Joints were appropriately padded and SCDs were used. Right chest wall was prepped and draped in usual sterile fashion. Three port incisions were made and thoracoscopic decortication performed. All loculations were broken up and fluid evacuated. Two 24-Lao chest drains were placed in the anterior port site. The other two port sites were closed in layers and Dermabond applied to skin. The patient was awakened, transferred to the recovery room in stable condition. Job ID: [id number]
== END 2019-08-08 18:58 | DRG 853 ==
LOC: EEVIPCON 08-03 01:11 → T4-B 08-03 01:11 → SURG A 08-04 11:41
PROVIDERS: ADMIT Internal Medicine; ATTEND Internal Medicine
PROC: 0W993ZX Drainage of Right Pleural Cavity, Percutaneous Approach, Diagnostic (ICD-10-PCS; principal; 2019-08-03)
PROC: 0BNK8ZZ Release Right Lung, Via Natural or Artificial Opening Endoscopic (ICD-10-PCS; 2019-08-03)
DX: A41.9 Sepsis, unspecified organism (principal); J18.9 Pneumonia, unspecified organism; J86.9 Pyothorax without fistula; J91.8 Pleural effusion in other conditions classified elsewhere; E87.1 Hypo-osmolality and hyponatremia; J43.9 Emphysema, unspecified; K21.9 Gastro-esophageal reflux disease without esophagitis; B18.2 Chronic viral hepatitis C; J45.20 Mild intermittent asthma, uncomplicated; G47.00 Insomnia, unspecified; F10.10 Alcohol abuse, uncomplicated; K64.9 Unspecified hemorrhoids; D64.9 Anemia, unspecified; K59.00 Constipation, unspecified; Z88.0 Allergy status to penicillin; Z88.8 Allergy status to other drugs, medicaments and biological substances; Z87.891 Personal history of nicotine dependence
CPT/HCPCS: 36415; 71045; 71046; 80048; 80053; 80202; 82150; 82945; 83615; 83735; 84157; 84478; 85007; 85025; 85027; 85060; 87040; 87070; 87076; 87116; 87205; 87206; 88112; 88305; 89051; 93005; 93010; J0692; J1642; J2001; J2250; J2405; J2704; J3010; J3370; J3490; J7050; J7620; Q0162; S0020